=== PATIENT | female | born 1950 | race Caucasian/White ===

== ENCOUNTER → 2016-09-17 | Outpatient (CLI) | payer MEDICARE, OTHER ==
[~2016-09-17] MED LIST: AMITRYPTYLINE PO; ATENOLOL50 MG PO; CALCITRIOL0.25 MCG PO; CLONIDINE1 EAC1 TD; GABAPENTIN400 M2 PO; LASIX20 MG PO; LEVOTHYROXINE112 MCG PO; LIOTHYRONINE SO5 MC1 PO; LORAZEPAM1 MG PO; MELATONIN10 M2 PO; SERTRALINE HCL100 M1 PO; SIMVASTATIN40 MG PO; TRADJENTA5 MG PO; WELLBUTRIN XL150 M2 PO
--- NOTE | ~2016-09-17 | US77 ---
[facility] A Service of [facility] & [facility] RADIOLOGY TEXT RESULTS PATIENT: RIAZ GARCIA LOCATION: [facility] : 50 UNIT #: [id number] AGE: [address]: Ap Snow MD SEX: F ORDER DR: [id number] [facility] [address] [facility]. [place], [place] [address] [id number] O MR#: [id number] Acc #: [id number] NAME: RIAZ GARCIA : 1950 SEX: F STUDY DATE/TIME: 09/17/2016 15:36 UNIT: CGUS ROOM: STUDY DESCRIPTION: US Kidney Bilateral Complete Attending Physician: Rosalia Snow M.D. Referring Physician: Rosalia Snow M.D. Ordering Physician: Rosalia Snow M.D. Primary Care Physician: Brown Jimenez M.D. MEDICAL IMAGING REPORT This report is preliminary unless electronic signature is present EXAM Renal ultrasound INDICATIONS Renal insufficiency. Acute kidney injury. BUN 17, creatinine 1.5, GFR 36. PROCEDURE Hoskins-scale and Doppler imaging kidneys and bladder. COMPARISON None FINDINGS Right kidney measures 10.2 cm. Unremarkable bladder. Left kidney measures 10.5 cm. Renal cortical thickness and echotexture within normal limits. IMPRESSION Negative renal ultrasound. Dictated by... Tylor Castaneda M.D. THIS IS AN ELECTRONICALLY VERIFIED REPORT Tylor Castaneda M.D. at 09/19/2016 2:11 PM SUDHAKAR/narendra TD: 09/18/2016 07:08 JOB #: [id number] MEDICAL IMAGING REPORT COPY
== END | disposition home or self-care (01) ==
LOC: CGUS 15:04
DX: N28.9 Disorder of kidney and ureter, unspecified (principal)
CPT/HCPCS: 76770

== ENCOUNTER 2016-11-11 07:38 | Observation (INO) | payer MEDICARE, OTHER ==
--- NOTE | ~2016-11-11 | CO ---
Unit #: [id number] #: [id number] Patient: RIAZ ANTHONY [id number] [address] [place], [place] [address] [id number] MR#: [id number] NAME: RIAZ ANTHONY ROOM: 570 Age: 66 Sex: F Admission Date: 11/11/2016 : 1950 Attending Physician: Sasha Richards M.D. Primary Care Physician: Brown Jimenez M.D. Consultation Date: 11/11/2016 CONSULTATION REPORT REASON FOR CONSULTATION Chronic kidney disease and need for heart catheterization. HISTORY OF PRESENT ILLNESS Ms. Anthony is a very pleasant 66-year-old female, known to my partner, Dr. Snow, who saw her at the end of August for discussion regarding cardiac catheterization. It looks like, at that time, her creatinines had been running anywhere between 1.3 and 1.47. She is noted to have a creatinine of 1.4 today, which is stable. The patient has been started on IV fluids and Mucomyst, and cath is planned for the morning. She denies any urinary complaints at this time. No problems with swelling or shortness of breath. To review, she is not using any NSAIDs. She has no history of kidney stones. No complaints this evening. 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 PAST SURGICAL HISTORY Tubal ligation, breast reduction, bladder repair, gallbladder, hernia repair, cervical lesion destruction and foot surgery. HOME MEDICATIONS 1. Rocaltrol 0.25 mcg daily. 2. Atenolol 100 mg a day. 3. Simvastatin 40 mg at bedtime. 4. Lasix 20 mg daily (on hold). 5. Liothyronine 5 mcg before breakfast. 6. Levothyroxine 112 mcg a day. 7. Tradjenta 5 mg a day. 8. Sertraline 100 mg a day. 9. Clonidine weekly patch. 10. Gabapentin 400 mg t.i.d. 11. Wellbutrin 150 mg a day. 12. Lorazepam 1 mg t.i.d. 13. Elavil as directed. 14. Melatonin daily. ALLERGIES Fluvirin and pneumococcal vaccine. FAMILY HISTORY Her mother is on dialysis, and I see her at the dialysis unit. No other Unit #: [id number] #: [id number] Patient: RIAZ ANTHONY family history of kidney problems. SOCIAL HISTORY She is a former smoker, with no alcohol or drug use. REVIEW OF SYSTEMS A complete 12-point review of systems was completed with the above findings. In addition, she denies any headaches or dizziness at this time. No vision changes. No nosebleeds, sore throat or earache. No current chest pain or palpitations. No cough or hemoptysis. No nausea, vomiting or diarrhea. No bright red blood per rectum or melena. No dysuria. No hematuria. No rashes or itching. No flank pain. No night sweats or hot flashes. No intolerance to heat or cold. No bleeding issues. No recent weight changes. Unless otherwise indicated, the review of systems was negative. PHYSICAL EXAMINATION VITAL SIGNS: The patient is afebrile. Pulse 52, respiratory rate 18, blood pressure 137/72. GENERAL: This is a pleasant 66-year-old female lying in bed, alert and oriented x3, currently in no acute distress. HEENT: Head is atraumatic, normocephalic. Eyes show pink conjunctiva with no scleral icterus. No nasal drainage or nosebleeds. Oropharynx is moist with no thrush. NECK: Neck shows no rigidity. CARDIOVASCULAR: Heart is bradycardic and regular with a soft murmur present. No rub appreciated. RESPIRATORY: Lungs are clear with no wheezing or rhonchi. Breathing is nonlabored. ABDOMEN: Abdomen is soft, protuberant, nontender. Bowel sounds are present. EXTREMITIES: No lower extremity clubbing or cyanosis. No pitting edema. SKIN: Skin is dry without rashes. MUSCULOSKELETAL EXAM: No joint effusions noted. NEUROLOGIC EXAM: Cranial nerves are grossly intact with no gross motor deficits. LYMPHATIC EXAM: There is no neck cervical lymphadenopathy. PSYCHIATRIC EXAM: Mood and affect appear normal. DIAGNOSTIC STUDIES CARDIOVASCULAR: I do note an echocardiogram done in August of 2015 that showed a normal ejection fraction with moderate mitral regurgitation, as well as moderate tricuspid and aortic regurgitation. LABS: Blood work from today showed an unremarkable CBC. INR was 1. Chemistry showed a sodium of 139, potassium 3.8, chloride 101, bicarb 30, glucose 156, BUN 16, creatinine 1.4. This falls within prior creatinine ranges from testing at the office. IMAGING: She also had a kidney ultrasound here on September 17 that was negative. ASSESSMENT AND PLAN 1. Chronic kidney disease stage 3. Patient's kidney function looks stable for her heart catheterization tomorrow. We will hold her Lasix and continue with IV fluid prep overnight. Do agree with starting her Mucomyst. 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 The patient does understand the risk of dye, including acute kidney injury and even possible dialysis, and agrees to proceed. 2. Hypertension. The patient's blood pressure is very reasonable on her home regimen, which we will continue. 3. Type 2 diabetes. I explained long-term goal hemoglobin A1C below 7 to prevent any worsening of her renal insufficiency. 4. Valvular heart disease with a history of congestive heart failure. Patient looks compensated this evening. I would like thank Dr. Richards for this consult and the opportunity to participate in the evaluation and care of Ms. Anthony. Dictated by... New Sinha Jr., M.D. GABRIELLA/bhavana TD: 11/12/2016 09:22 JOB #: [id number] CONSULTATION REPORT Page 1 of 1 X New Sinha MD X CONSULTATION REPORT
--- NOTE | ~2016-11-11 | EKG ---
PATIENT: RIAZ GARCIA UNIT #: [id number] Ventricular Rate: 63 BPM Atrial Rate: 63 BPM P-R Interval: 170 ms QRS Duration: 84 ms Q-T Interval: 418 ms QTC Calculation(Bezet): 427 ms P [place]: 68 degrees Calculated R [place]: 56 degrees Calculated T [place]: 54 degrees Diagnosis Line: Normal sinus rhythm Diagnosis Line: Normal ECG Diagnosis Line: No previous ECGs available Diagnosis Line: Confirmed by ARTEM MONTOYA MD ([id number]) on 11/13/2016 Diagnosis Line: 11:10:43 PM INTERPRETING MD: JAN CASTANON
--- NOTE | ~2016-11-11 | DS ---
Unit #: [id number] #: [id number] Patient: RIAZ GARCIA [id number] [address] [place], [place] [address] [id number] MR#: [id number] NAME: RIAZ GARCIA ROOM: 570 Age: 66 Sex: F Admission Date: 11/11/2016 : 1950 Discharge Date: 11/12/2016 Attending Physician: Sasha Richards M.D. Primary Care Physician: Brown Jimenez M.D. DISCHARGE SUMMARY DISCHARGE DIAGNOSES 1. Chest pain. 2. Status post cardiac catheterization, 11/12/2016, per Dr. Melton that revealed angiographically normal coronaries. Left ventriculogram was not done secondary to chronic kidney disease. Left ventricular end-diastolic pressure 30 mmHg. 3. Chronic kidney disease stage 3. 4. Hypertension. 5. Hyperlipidemia. 6. Diabetes mellitus type 2. 7. Hypothyroidism. DISCHARGE MEDICATIONS 1. Neurontin 400 mg q.i.d. 2. Amitriptyline p.r.n. 3. Wellbutrin 150 mg daily. 4. Zoloft 100 mg daily. 5. Ativan 1 mg t.i.d. p.r.n. 6. Atenolol 100 mg daily. 7. Tradjenta 5 mg daily. 8. Furosemide 20 mg daily. 9. Simvastatin 40 mg daily. 10. Clonidine 12 mg transdermal weekly. 11. Melatonin 10 mg daily p.r.n. 12. Levothyroxine 112 mcg daily. 13. Cytomel 5 mg q.a.m. 14. Calcitriol 0.25 mcg daily. HOSPITAL COURSE This is a 66-year-old white female who presented to the office with a complaint of chest tightness associated with diaphoresis and dyspnea on exertion. She was scheduled for an elective cardiac catheterization to rule out coronary artery disease. She was admitted on the day prior to her cardiac catheterization for hydration because of chronic kidney disease to prevent contrast induced nephropathy. Creatinine on admission 1.4. She received IV fluids prior and after the cardiac catheterization. Creatinine today 1.2. Cardiac catheterization showed angiographically normal coronaries. No LV-gram was done because of her renal disease. Right radial site is healing well without hematoma or bruising. She is normotensive. She is stable for discharge today. ASSESSMENT VITAL SIGNS: Blood pressure 130/62. Heart rate 57. Temperature 97.7. CHEST: Clear to auscultation. Unit #: [id number] #: [id number] Patient: RIAZ GARCIA HEART: S1, S2 with regular rate and rhythm. ABDOMEN: Soft, nontender with bowel sounds present. EXTREMITIES: Right radial without hematoma or bruising, 4+ pulse. DIAGNOSTIC STUDIES LABORATORY: Glucose 140, BUN 14, creatinine 1.2, sodium 139, potassium 3.9. White count 7.6, hemoglobin 14.8, hematocrit 45.0, platelet count 267. CARDIOVASCULAR: EKG shows normal sinus rhythm, rate 63 beats per minute. There are no acute ischemic changes. DISCHARGE INSTRUCTIONS 1. The patient will be discharged home today. 2. Follow up with Dr. Richards on August 11, 2017 at 2:30 p.m. 3. Follow up with Dr. Snow in two to three weeks. 4. Follow up with primary care physician in two to three weeks. 5. The patient will need a BMP at Dr. Sinha's office on Thursday to check for her renal function. 6. No changes in her medication regimen. Dictated by... Tyrone Meneses A.P.R.N. for Radha Mccall TD: 11/13/2016 08:43 JOB #: [id number] DISCHARGE SUMMARY Page 1 of 1 X Tyrone Meneses APRN X DISCHARGE SUMMARY
--- NOTE | ~2016-11-11 | BMI ---
[facility] Nutrition Therapy DATE: 11/12/16 Patient: RIAZ GARCIA Physician: ATTPRE Address: [facility] 3RD Room/Bed: [address] [place] [address], Zip: [place] [address] Admit Date: 11/11/16 Date of : [birth year] Height: 5 4 Weight: 254 115.6 HIGH BMI NOTE: DX: 66 Y.O. FEMALE ADMITTED FOR HYDRATION FOR PROCEDURE, CKD ANTHROPOMETRICS: 5'4", WT: 254# (115 KG), BMI: 43.6 DIET: NPO INTERVENTION: 1. NPO RECOMMENDATIONS: 1. ONCE MEDICALLY FEASIBLE, ADVANCE DIET INDICATED TO CC+HH TO PROMOTE GRADUAL WEIGHT LOSS TOWARDS HEALTHY BMI (19.0-25.0) OR +/-10%IBW RD WILL F/U PER PROTOCOL Respectfully, RUT GONZALEZ MS, RD, LD Food and Nutritional Services [facility] cc: client file
[2016-11-11] MEDS ORDERED: CALCITRIOL0.25 MCG PO (13:31)
[2016-11-11] MEDS ORDERED: ATENOLOL50 MG PO (13:32)
[2016-11-11] MEDS ORDERED: SIMVASTATIN40 MG PO (13:32)
[2016-11-11] MEDS ORDERED: LIOTHYRONINE SO5 MC1 PO (13:33)
[2016-11-11] MEDS ORDERED: LASIX20 MG PO (13:33)
[2016-11-11] MEDS ORDERED: SERTRALINE HCL100 M1 PO (13:34)
[2016-11-11] MEDS ORDERED: TRADJENTA5 MG PO (13:34)
[2016-11-11] MEDS ORDERED: LEVOTHYROXINE112 MCG PO (13:34)
[2016-11-11] MEDS ORDERED: WELLBUTRIN XL150 M2 PO (13:36)
[2016-11-11] MEDS ORDERED: GABAPENTIN400 M2 PO (13:36)
[2016-11-11] MEDS ORDERED: CLONIDINE1 EAC1 TD (13:36)
[2016-11-11] MEDS ORDERED: LORAZEPAM1 MG PO (13:37)
[2016-11-11] MEDS ORDERED: MELATONIN10 M2 PO (13:38)
[2016-11-11] MEDS ORDERED: AMITRYPTYLINE PO (13:38)
[2016-11-11 14:38] LABS: HEMATOCRIT 44.4 % (35.0-45.0); HEMOGLOBIN 14.6 gm/dL (12.0-16.0); MEAN CELL VOLUME 88.3 FL (83-96); MEAN CORPUSCULAR HGB CONC 32.8 g/dL (30-36); MEAN PLATELET VOLUME 8.9 FL (6.5-11.5); RED BLOOD COUNT 5.04 X10e (3.90-5.30); RED CELL DISTRIBUTION WIDTH 13.7 % (11.0-15.5); WHITE BLOOD COUNT 8.5 X10e3 (4.0-10.5)
[2016-11-11 14:54] LABS: PROTHROMBIN TIME (PATIENT) 10.3 SECONDS (9.6-11.5)
[2016-11-11 15:09] LABS: BUN/CREATININE RATIO 11.42; CALCIUM SERUM 8.3 mg/dL (8.4-10.2); CREATININE SERUM 1.4 mg/dL (0.6-1.4); GLOM FILT RATE Estimated 39.1 mL/min (>60); POTASSIUM 3.8 mmol/L (3.5-5.1)
[2016-11-12 08:26] LABS: HEMOGLOBIN 14.8 gm/dL (12.0-16.0); MEAN CELL VOLUME 88.8 FL (83-96); MEAN CORPUSCULAR HEMOGLOBIN 29.2 PG (28-34); MEAN CORPUSCULAR HGB CONC 32.8 g/dL (30-36); MEAN PLATELET VOLUME 8.5 FL (6.5-11.5); RED BLOOD COUNT 5.07 X10e (3.90-5.30); RED CELL DISTRIBUTION WIDTH 13.6 % (11.0-15.5); WHITE BLOOD COUNT 7.6 X10e3 (4.0-10.5)
[2016-11-12 08:43] LABS: PARTIAL THROMBOPLASTIN TIME 25.9 SECONDS (23.5-31.3); PROTHROMBIN TIME (PATIENT) 10.3 SECONDS (9.6-11.5)
[2016-11-12 08:53] LABS: BUN/CREATININE RATIO 11.66; CALCIUM SERUM 8.3 mg/dL (8.4-10.2); CREATININE SERUM 1.2 mg/dL (0.6-1.4); GLOM FILT RATE Estimated 47.1 mL/min (>60); POTASSIUM 3.9 mmol/L (3.5-5.1)
== END 2016-11-12 18:42 | disposition home or self-care (01) ==
LOC: CEDOF 07:38 → C5C 07:38 → CEDOF 07:38 → C5C 12:02
PROVIDERS: Nurse Practitioner
DX: R07.89 Other chest pain (principal); I13.0 Hypertensive heart and chronic kidney disease with heart failure and stage 1 through stage 4 chronic kidney disease, or unspecified chronic kidney disease; E11.22 Type 2 diabetes mellitus with diabetic chronic kidney disease; N18.3 Chronic kidney disease, stage 3 (moderate); I50.9 Heart failure, unspecified; E78.5 Hyperlipidemia, unspecified; E03.9 Hypothyroidism, unspecified; Z87.891 Personal history of nicotine dependence; Z79.84 Long term (current) use of oral hypoglycemic drugs; Z84.1 Family history of disorders of kidney and ureter; Z88.7 Allergy status to serum and vaccine; F32.9 Major depressive disorder, single episode, unspecified
CPT/HCPCS: 80048; 82947; 85027; 85610; 85730; 93005; C1769; C1887; C1894; G0378; J1644; J1815; J2250; J3010